=== PATIENT | male | born 1980 | race Caucasian/White ===

== ENCOUNTER 2017-05-16 09:26 | Emergency (ER) | payer MEDICAID ==
[~2017-05-16] VITALS: Ht 185.4 cm; Wt 82.6 kg
[2017-05-16 10:15] VITALS: BP 149/79
--- NOTE | 2017-05-16 13:35 | NUR ---
PATIENT LEFT WITHOUT BEING SEEN BY DR. BUTCHER. NO FURTHER CARE PROVIDED FOR PATIENT.
== END 2017-05-16 13:35 | disposition left against medical advice (07) ==
LOC: MED 09:29
DX: M54.2 Cervicalgia (principal); M54.5 Low back pain; Z53.21 Procedure and treatment not carried out due to patient leaving prior to being seen by health care provider; V89.2XXA Person injured in unspecified motor-vehicle accident, traffic, initial encounter; Y93.89 Activity, other specified; Y92.89 Other specified places as the place of occurrence of the external cause; Y99.8 Other external cause status
CPT/HCPCS: 72050; 72110